=== PATIENT | male | born 1950 | race Caucasian/White ===

== ENCOUNTER → 2016-11-19 | Outpatient (CLI) | payer BC ==
[~2016-11-19] MED LIST: ALBUTEROL17 GM INH; AMLODIPINE BESYL5 MG PO; ASPIRIN81 MG PO; AVODART0.5 MG PO; BENZONATATE PO; CELEBREX PO; CLARITHROMYCIN500 MG PO; CLEOCIN HCL150 MG PO; FLANAX220 MG PO; FLEXERIL10 MG PO; HYZAAR 100-25 T1 TAB PO; KEFLEX500 MG PO; LIPITOR20 MG PO; LISINOPRIL PO; LORTAB 5/500 TA1 TA1 PO; MEDROL4 MG/DOSE- PO; METOPROLOL SUCC25 MG PO; MYAMBUTOL400 M1 PO; NEXIUM PO; NORVASC PO; OMEPRAZOLE40 M1 PO; PATIENT'S PHARMACY; PREDNISONE10 MG/DOSE PO; RIFAMPIN300 M1 PO; TRIBENZOR 40-51 EAC1 PO; ZESTORETIC 20-1 EAC1 PO; ZOCOR PO
--- NOTE | ~2016-11-19 | CT55 ---
[facility] A Service of [facility] & [facility] RADIOLOGY TEXT RESULTS PATIENT: LORENA WASHINGTON LOCATION: [facility] : 54 UNIT #: [id number] AGE: [address]: MONSE LIM MD (INT MED) SEX: M ORDER DR: [id number] [address] [address] [id number] O MR#: [id number] Acc #: [id number] NAME: LORENA WASHINGTON. : 1950 SEX: M STUDY DATE/TIME: 11/19/2016 13:50 UNIT: [facility] ROOM: STUDY DESCRIPTION: CT Chest W Con Attending Physician: Monse Lim M.D. Referring Physician: Monse Lim M.D. Ordering Physician: Monse Lim M.D. Primary Care Physician: Monse Lim M.D. MEDICAL IMAGING REPORT This report is preliminary unless electronic signature is present. EXAM CT chest with contrast 11/19/2016 1350 hours CLINICAL HISTORY 65-year-old man with history of pneumonia, cough, shortness of air with hypertension. History of abnormal chest x-ray 6-7 weeks ago for further evaluation. COMPARISON Chest x-ray 11/15/2016, 09/17/[address] abdomen 06/14/2010. TECHNIQUE Dynamic helical CT images were obtained from the lung apices through the adrenal glands with contrast. Sagittal and coronal reconstructions were performed. Total contrast was Isovue-370 70 mL IV. Total exam DLP 539 mGy-cm. This CT exam was performed with one or more of the following radiation dose reduction techniques: automatic exposure control, adjustment of mA and/or kV according to patient size, and iterative reconstruction. FINDINGS Images through the thoracic inlet demonstrate no thyroid lesion or supraclavicular adenopathy. Images through the chest demonstrate normal caliber aorta, pulmonary arteries, cardiac chambers and pericardium. There is no pathologic adenopathy. There is no pericardial or pleural fluid. The lungs demonstrate significant underlying emphysematous change. There is mass-like opacity with areas of the areas of rounded lucency in the right upper lobe. These rounded areas may represent emphysematous blebs within an area of infiltrate or mass. This measures up to 6.8 x 4.3 cm. There is an irregularly marginated noncalcified nodular density at the [facility] A Service of [facility] & [facility] RADIOLOGY TEXT RESULTS PATIENT: LORENA WASHINGTON LOCATION: [facility] : 52 UNIT #: [id number] AGE: [address]: MONSE LIM MD (INT MED) SEX: M ORDER DR: left lung apex measuring 1.7 x 1.3 cm. Both of these areas are nonspecific and could represent infection, post infectious change, however, malignancy is a concern particularly given the progression of the right upper lobe findings from August to October 2016. Abnormal density extends along the lateral pleural surface through the lateral aspect of the right upper lobe measuring up to 2.9 cm transversely in its inferior aspect. This does abut the minor fissure and may involve the fissure but does not cross the fissure. The right middle lobe and right lower lobe are clear. The left lower lobe is clear. Limited views through the upper abdomen demonstrate tiny sand-like gallstones in the gallbladder without gallbladder wall thickening. The liver and adrenal glands are normal. IMPRESSION 1. Abnormal chest CT confirming mass-like opacity in the periphery of the right upper lobe extending inferiorly and abutting the pleura of the minor fissure. This may involve the pleura of the minor fissure but does not cross the fissure. This finding is similar to chest x-ray 11/15/2016 but clearly increased from chest x-ray 09/17/2016 and new from 07/22/2012. Infection including atypical organisms is included in the differential. The progression of findings is concerning for malignancy. 2. There is an ovoid irregularly marginated density in the left apex measuring 1.3 x 1.7 cm. This is concerning for malignancy. This is not detectable on plain film. 3. There is no adenopathy or pleural fluid. The visualized portions of the liver and the adrenal glands are normal. 4. Consider further characterization with PET/CT to assess for malignancy. STAT * RESULT Dictated by... Miryam Borrego M.D. THIS IS AN ELECTRONICALLY VERIFIED REPORT Miryam Borrego M.D. at 11/20/2016 7:01 PM NATALIYA/jessy TD: 11/20/2016 14:00 JOB #: [id number] MEDICAL IMAGING REPORT Page 1 of 1
[2016-11-19 13:50] LABS: POC - CREATININE 1.05 mg/dL (0.64-1.27); POC - GFR >60.0 mL/min (>60)
== END | disposition home or self-care (01) ==
LOC: SCT 15:47
PROVIDERS: Internal Medicine
DX: R93.8 Abnormal findings on diagnostic imaging of other specified body structures (principal); J98.4 Other disorders of lung
CPT/HCPCS: 71260; 82565; Q9967

== ENCOUNTER 2017-03-23 11:02 | Inpatient (IN) | payer BC ==
[~2017-03-23] VITALS: Ht 175.3 cm; Wt 67.4 kg
--- NOTE | ~2017-03-23 | HP ---
Unit #: [id number] #: [id number] Patient: LORENA WASHINGTON [id number] [address] [place], [place] [address] [id number] I MR#: [id number] NAME: LORENA WASHINGTON. ROOM: 547 Age: 66 Sex: M Admission Date: 03/23/2017 : 1950 Attending Physician: Jayesh Calles M.D. Primary Care Physician: Alberto Lim M.D. HISTORY AND PHYSICAL CHIEF COMPLAINT Chest pain. 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 The patient had multiple biopsies for the right upper lobe density and was diagnosed with the Mycobacterium avium complex. The patient stated the patient continues to smoke cigarettes and was complaining of shortness of breath and nonproductive cough. The patient had a chest x-ray that shows a right upper density and being admitted for the above reasons. The patient also complains of feeling cold sweats and denies any chest pain, denies any nausea and vomiting. PAST MEDICAL HISTORY History of a COPD, hypertension and lung infection with the Mycobacterium avium complex. PAST SURGICAL HISTORY Right shoulder surgery. HOME MEDICATION Patient is on omeprazole, Lipitor, metoprolol, aspirin, lisinopril and hydrochlorothiazide, naproxen, clarithromycin and Myambutol and Rifampin and amlodipine. SOCIAL HISTORY Patient continues to smoke a pack of cigarettes daily and positive for occasional alcohol and denies any illicit drug abuse. FAMILY HISTORY Reviewed and none. ALLERGIES No known drug allergies. REVIEW OF SYMPTOMS Positive for shortness of breath, positive for chest pain, positive for a nonproductive cough, positive for the night sweats. All other systems have been reviewed and none. Unit #: [id number] #: [id number] Patient: LORENA WASHINGTON PHYSICAL EXAMINATION GENERAL APPEARANCE: On examination patient is lying on a bed, not in acute distress. VITAL SIGNS: Temperature 97.5, pulse 97, respiratory rate 16, blood pressure 147/87, sating 98% at room air. HEENT: Head atraumatic and normocephalic. Pupils equal, round and reacting to light and accommodation. Extraocular movements are intact. NECK: Supple. LUNGS: Decreased air entry at the bases. HEART: Regular rate and rhythm. ABDOMEN: Soft, positive bowel sounds. EXTREMITIES: No cyanosis. No clubbing. NEUROLOGIC: Alert, awake, oriented. No gross focal motor deficit. DIAGNOSTIC STUDIES LABORATORY DATA: WBC 15.3, hemoglobin 15.9, hematocrit 45.1, platelets 208, INR is 1.3, sodium 136, potassium 3.7, chloride 100, bicarb 27, glucose 116, BUN 32, creatinine 1.2, AST 14, ALT 13, alkaline phosphatase 73, total bilirubin 2.7, albumin 3.6, BNP 232, and myoglobin is 302. ASSESSMENT 1. Chronic obstructive pulmonary disease. 2. Mycobacterium avium complex infection. PLAN Plan to admit the patient to the observation with the telemetry. Continue with the triple antibiotics with the Myambutol and the clarithromycin and Rifampin and will add the Solu-Medrol 40 mg q.8 h. and will have the pulmonary doctor evaluate the patient here and obtain the old records from the [facility] and continue with a nicotine patch for the smoking cessation and further recommendations will follow. Dictated by Darryl Aguirre TD: 03/23/2017 20:54 JOB #: [id number] HISTORY AND PHYSICAL Page 1 of 1 X JAYESH CALLES MD X HISTORY AND PHYSICAL
--- NOTE | ~2017-03-23 | CR72 ---
[facility] A Service of [facility] RADIOLOGY TEXT RESULTS PATIENT: LORENA WASHINGTON LOCATION: [facility] [address] : 54 UNIT #: [id number] AGE: [address]: Kelsey Reid MD SEX: M ORDER DR: [id number] [facility] [address] [facility] [place], [place] [address] [id number] I MR#: [id number] Acc #: [id number] NAME: LORENA WASHINGTON. : 1950 SEX: M STUDY DATE/TIME: 03/25/2017 11:46 [facility] ROOM: [address] [place] [address] DESCRIPTION: CR Chest Single View Portable Attending Physician: Kelsey Reid M.D. Ordering Physician: Physician Non-Staff Primary Care Physician: Alberto Lim M.D. MEDICAL IMAGING REPORT This report is preliminary unless electronic signature is present EXAM Portable chest HISTORY Shortness of breath and chest pain, onset today. Recent pneumonia. TECHNIQUE A single AP view of the chest was obtained. COMPARISON 03/23/2017 FINDINGS Consolidation is again seen at the right apex. It shows partial clearing since the previous exam. No new infiltrates are seen elsewhere. No pleural fluid is noted. The heart and mediastinum are stable and vascular markings are normal. IMPRESSION Slight decrease in extent of right apical infiltrate since the previous exam. No new lesions are seen elsewhere in the chest. Dictated by... Jake Lara M.D. THIS IS AN ELECTRONICALLY VERIFIED REPORT Jake Lara M.D. at 04/02/2017 1:55 PM ERUM/vargas TD: 03/25/2017 18:06 JOB #: [id number] MEDICAL IMAGING REPORT [facility] A Service [facility] RADIOLOGY TEXT RESULTS PATIENT: LORENA WASHINGTON LOCATION: [facility] 315- : 52 UNIT #: [id number] AGE: [address]: Kelsey Reid MD SEX: M ORDER DR: Page 1 of 1 COPY
--- NOTE | ~2017-03-23 | DS ---
Unit #: [id number] #: [id number] Patient: LORENA WASHINGTON [id number] [address] [place], [place] [address] [id number] I MR#: [id number] NAME: LORENA WASHINGTON ROOM: 315 Age: 66 Sex: M Admission Date: 03/23/2017 : 1950 Discharge Date: Attending Physician: Kelsey Reid M.D. Primary Care Physician: Alberto Lim M.D. DISCHARGE SUMMARY DISCHARGE DIAGNOSES 1. Mycobacterium avium infection. 2. Chronic obstructive pulmonary disease with exacerbation. 3. Chest pain, pulmonary related, atypical. 4. Hypertension. 5. Left apex amass, rule out malignancy. CONSULTATION Dr. Barajas. PROCEDURE None. DIAGNOSTIC STUDIES LABORATORY: ABG: A pH 7.4, carbon dioxide 43, oxygen 73. Sodium 141, potassium 3.3, creatinine 1. WBC 13.2, hemoglobin 13.4, platelets 207,000. IMAGING: CT of the chest without contrast shows slight improvement in dense consolidation right upper lobe and persistent spiculated mass left lung apex measuring 1.9 x 1.6 cm, slightly increased from previous study concerning for malignancy. HOSPITALIZATION COURSE A 66 year old admitted because of shortness of breath. Shortness of breath with chest pain and cough, secondary to MAC infection. The patient has been evaluated by Yomaira Cohen Dr. (1) . Patient wants to go to [facility] for further evaluation and treatment. I talked to the admitting doctor at [facility] and he will be admitted under Dr. Rene, proofreader, for further evaluation and treatment of his MAC infection. Left apex mass, rule out malignancy. I am going to leave (2) to the [facility] Noel proofreader for further evaluation and treatment of that left apex mass. Hypertension: Well controlled. Chest pain: Likely from noncardiac issues from his lung-related issues. Cardiac enzymes have been ordered which are pending. His EKG shows sinus tachycardia. Discussed with Dr. Abebe. He is okay for the patient to be transferred to [facility]. He agreed to accept the patient. The patient will be Unit #: [id number] #: [id number] Patient: LORENA WASHINGTON transferred to [facility] under Dr. Rene's care. ALLERGIES None. DISCHARGE MEDICATIONS 1. DuoNeb 3 mL inhalation q.4. 2. Solu-Medrol 40 IV q.8. 3. Tylenol 650 q.6 p.r.n. pain. 4. Lovenox 40 mg subcutaneous daily. 5. Ethambutol 400 mg p.o. b.i.d. 6. Rifampin 300 mg p.o. b.i.d. 7. Nicotine 21 mg transdermal daily. 8. Norvasc 5 daily. 9. Toprol XL 12.5 p.o. daily. 10. Hydrochlorothiazide 12.5 p.o. daily. 11. Lipitor 20 daily. 12. Lisinopril 20 daily. 13. Aspirin 81 daily. 14. Naproxen 500 daily. 15. Protonix 40 daily. 16. Biaxin 500 mg p.o. b.i.d. Dictated by... Darryl Hwang/james TD: 03/25/2017 12:00 JOB #: [id number] DISCHARGE SUMMARY Page 1 of 1 X Kelsey Reid MD X DISCHARGE SUMMARY
--- NOTE | ~2017-03-23 | EKG ---
PATIENT: LORENA WASHINGTON UNIT #: [id number] Ventricular Rate: 117 BPM Atrial Rate: 117 BPM P-R Interval: 140 ms QRS Duration: 86 ms Q-T Interval: 346 ms QTC Calculation(Bezet): 482 ms P [place]: 76 degrees Calculated R [place]: -72 degrees Calculated T [place]: 64 degrees Diagnosis Line: Sinus tachycardia Diagnosis Line: Biatrial enlargement Diagnosis Line: Pulmonary disease pattern Diagnosis Line: RSR' or QR pattern in V1 suggests right Diagnosis Line: ventricular conduction delay Diagnosis Line: Left anterior fascicular block Diagnosis Line: Possible Inferior infarct (cited on or before Diagnosis Line: 25-MAR-2017) Diagnosis Line: Abnormal ECG Diagnosis Line: When compared with ECG of 17-SEP-2016 22:25, Diagnosis Line: No significant change was found Diagnosis Line: Confirmed by SALOME OKEEFE MD ([id number]) on 03/25/2017 Diagnosis Line: 7:59:42 PM INTERPRETING MD: MALDONADO RODRIGUEZ
--- NOTE | ~2017-03-23 | EKG ---
PATIENT: LORENA WASHINGTON UNIT #: [id number] Ventricular Rate: 101 BPM Atrial Rate: 101 BPM P-R Interval: 142 ms QRS Duration: 96 ms Q-T Interval: 376 ms QTC Calculation(Bezet): 487 ms P [place]: 77 degrees Calculated R [place]: -75 degrees Calculated T [place]: 68 degrees Diagnosis Line: Sinus tachycardia Diagnosis Line: Biatrial enlargement Diagnosis Line: Left anterior fascicular block Diagnosis Line: Abnormal ECG Diagnosis Line: When compared with ECG of 17-SEP-2016 22:25, Diagnosis Line: No significant change was found Diagnosis Line: Confirmed by JUNG SUTTON MD ([id number]) on Diagnosis Line: 03/27/2017 11:10:08 PM INTERPRETING : CHELY
--- NOTE | ~2017-03-23 | CT57 ---
[facility] A Service of [facility] & [facility] RADIOLOGY TEXT RESULTS PATIENT: LORENA WASHINGTON LOCATION: [facility] 315-01 : [birth year] UNIT #: [id number] AGE: [address]: Kelsey Reid MD SEX: M ORDER DR: [id number] [facility] [address] [facility]. [place], [place] [address] [id number] I MR#: [id number] Acc #: [id number] NAME: LORENA WASHINGTON. : 1950 SEX: M STUDY DATE/TIME: 03/24/2017 20:02 [facility]: [facility] STUDY DESCRIPTION: CT Chest Wo Cont Attending Physician: Kelsey Reid M.D. Ordering Physician: Jin Mcrae M.D. Primary Care Physician: Alberto Lim M.D. MEDICAL IMAGING REPORT This report is preliminary unless electronic signature is present EXAM CT chest without contrast 03/24/2017 HISTORY 66-year-old male with chest pain since 03/21/2017. Fever, cough and congestion. History of MAC infection right upper lobe. COMPARISON CT chest 11/19/2016 TECHNIQUE Helical scan performed through the chest without IV contrast. Coronal and sagittal reformatted images. This CT exam was performed with one or more of the following radiation dose reduction techniques: Automatic exposure control, adjustment of mA and/or kV according to patient size, and iterative reconstruction. FINDINGS Thoracic aorta normal in course and caliber with scattered atherosclerotic calcification. Heart size normal. No pericardial effusion. No pleural effusions. No pneumothorax. There is again noted a spiculated mass in the left lung apex measuring 1.9 x 1.6 cm in size. This has slightly increased from the prior study, where it measured 1.3 x 1.7 cm. This is again concerning for malignancy. There is slight interval improvement in aeration of the dense consolidation in the right upper lobe. Atypical infectious process is again considered in the differential diagnosis. The findings are superimposed on severe emphysema. Scanning through the upper abdomen demonstrates cholelithiasis. No acute bony abnormality. IMPRESSION [facility] A Service of [facility] & [facility] RADIOLOGY TEXT RESULTS PATIENT: LORENA WASHINGTON LOCATION: [facility] 315-01 : [birth year] UNIT #: [id number] AGE: [address]: Kelsey Reid MD SEX: M ORDER DR: 1. Slight interval improvement in dense consolidation in the right upper lobe. Atypical infection is again considered in the differential. Underlying malignancy is not completely excluded and continued follow up to resolution recommended. 2. Persistent spiculated mass in the left lung apex. This measures 1.9 x 1.6 cm on today's exam, slightly increased from 1.3 x 1.7 cm on the previous study. This is again concerning for malignancy and further evaluation with PET CT may be considered. 3. Severe emphysema. 4. Cholelithiasis. Dictated by... Gurjit Bello M.D. THIS IS AN ELECTRONICALLY VERIFIED REPORT Gurjit Bello M.D. at 03/25/2017 10:55 AM TOSHIA/aung TD: 03/25/2017 10:48 JOB #: [id number] MEDICAL IMAGING REPORT Page 1 of 1 COPY
--- NOTE | ~2017-03-23 | CR72 ---
[facility] A Service of [facility] RADIOLOGY TEXT RESULTS PATIENT: LORENA WASHINGTON LOCATION: [facility] 315-01 : 54 UNIT #: [id number] AGE: [address]: Jin Mcrae MD SEX: M ORDER DR: [id number] [address] [address] [id number] E MR#: [id number] Acc #: [id number] NAME: LORENA WASHINGTON : 1950 SEX: M STUDY DATE/TIME: 03/23/2017 12:10 UNIT: SED ROOM: STUDY DESCRIPTION: CR Chest Single View Portable Attending Physician: Tres Bal M.D. Ordering Physician: Tres Bal M.D. Primary Care Physician: Alberto Lim M.D. MEDICAL IMAGING REPORT This report is preliminary unless electronic signature is present. EXAM Portable chest INDICATION Dull ache in chest with cough, congestion, and night sweats for 2 days. COMPARISON 09/17/2016 FINDINGS A portable view of the chest was obtained. The heart size and vascularity are normal. The left lung is clear. There is increased density throughout a large area of the right apex measuring 8.3 cm in diameter. There was some density in this region on the previous study and allowing for changes in patient position, it is probably stable. There is a chest CT from 11/19/2016 which confirmed a large right apical area of consolidation. IMPRESSION Large area of abnormal density in the right apex measuring at least 8 cm in diameter. Today's study is a portable chest and it was difficult to compare to the PA and lateral view of the chest and the chest CT done in October of 2016. Certainly, there was a large amount of abnormal density in this region on chest CT and it may not have changed significantly. It has certainly progressed as compared with the 09/17/2016 portable chest. Correlation with medical records which may show what is recommended. A repeat chest CT could be performed to allow comparison between the CT scan today and the findings in October. It certainly has an appearance suggesting either tumor or infection. TB cannot be excluded with location of this abnormality and the history of night sweats. [facility]. [facility] A Service of [facility] RADIOLOGY TEXT RESULTS PATIENT: LORENA WASHINGTON LOCATION: [facility] 315-01 : 54 UNIT #: [id number] AGE: [address]: Jin Mcrae MD SEX: M ORDER DR: Dictated by... Mukesh Prince M.D. THIS IS AN ELECTRONICALLY VERIFIED REPORT Mukesh Prince M.D. at 03/25/2017 6:16 AM ROSANNE/jessy TD: 03/24/2017 14:55 JOB #: [id number] MEDICAL IMAGING REPORT Page 1 of 1
--- NOTE | ~2017-03-23 | CO ---
Unit #: [id number] #: [id number] Patient: ALEXI OLEARY [id number] [address] [place], [place] [address] [id number] MR#: [id number] NAME: ALEXI OLEARY ROOM: 315 Age: 66 Sex: M Admission Date: 03/23/2017 : 1950 Attending Physician: Kelsey Reid M.D. Primary Care Physician: Alberto Lim M.D. Consultation Date: 03/25/2017 CONSULTATION REPORT PULMONARY CONSULTATION HISTORY OF PRESENT ILLNESS Alexi Oleary is a 66-year-old, male, admitted to the emergency department with complaints of chest pain and dyspnea. Mr. Oleary is an active smoker with COPD and a cavitary density in the apex of his right lung that has been under evaluation since August of this year. He had a chest CT done at this hospital on November 19 that made note of a 5- to 6-cm mass in the apex of the right upper lobe abutting the pleural surface. According to some medical records from [facility] and the family, he was evaluated by Dr. Wojciech Martinez at [facility] with navigational bronchoscopy and then percutaneous needle biopsy of right upper lobe. Initial biopsies were positive for granulomatous disease, and there was a concern that this represented sarcoidosis. 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 The patient did well until about 24 hours prior to admission when he developed increased chest congestion, cough, sputum production, and chest pain. He was taken to the emergency department at [facility] and then transferred here because of his chest pain history. Last evening, he spiked fever to 103. His admission chest x-ray suggested a cavitary infiltrate in right apex. PAST MEDICAL HISTORY Remarkable for hypertension, gastroesophageal reflux, chronic sinusitis, and dyslipidemia. He also has a history of rheumatoid arthritis and chronic low back pain with sciatica. PAST SURGICAL HISTORY Include right shoulder surgery in 2006. OUTPATIENT MEDICATIONS Include omeprazole, Lipitor, metoprolol, aspirin, Zestoretic, and the above-mentioned antibiotics. ALLERGIES No drug allergies. FAMILY HISTORY Reviewed, noncontributory. Unit #: [id number] #: [id number] Patient: ALEXI OLEARY SOCIAL HISTORY The patient smokes a pack of cigarettes a day. No history of alcohol or drug abuse. Socially drinks beer. REVIEW OF SYSTEMS CONSTITUTIONAL: His chest congestion is a bit better last 24 hours. ENT: Complained of chronic nasal and sinus congestion. No epistaxis. NECK: No pain in cervical spine. No thyroid enlargement. PULMONARY: His dyspnea and cough are slightly better this morning. CARDIOVASCULAR: Denied midsternal chest pain, ankle edema, or orthopnea. GI: Denied nausea, vomiting, or diarrhea. : Denied dysuria or hematuria. He has problems with urinary hesitancy and dribbling. NEUROLOGIC: No loss of consciousness, seizures, or syncope. ENDOCRINE: Denied cold intolerance, polyuria, or polydipsia. MUSCULOSKELETAL: Complained of feeling generally weak, but no focal or unilateral weakness. No joint swelling or erythema. PHYSICAL EXAMINATION GENERAL: He appeared well-developed, well-nourished male, in no acute distress. VITAL SIGNS: His vital signs around the time of admission, temperature was 98.2, pulse 83, respirations 16, and blood pressure was 149/79. HEENT: Head, normocephalic without evidence of trauma. Eyes; pupils equal, round, reactive to light. Accommodation not tested. Sclerae anicteric. Conjunctivae normal. Ear, nose, and throat; nostrils open and patent. Tympanic membranes appeared normal. Oral cavity was remarkable for a low-set soft palate. Mallampati class 3. No oral lesions. NECK: Supple without adenopathy or jugular venous distention. LUNGS: Hyperresonant percussion with diminished breath sounds. Scattered rhonchi bilaterally. No rales or wheezes. CARDIAC: PMI, left fifth intercostal space, midclavicular line. No murmurs or gallops. ABDOMEN: Soft, nontender. No hepatosplenomegaly or masses. Bowel sounds were normal. GENITALIA: Normal male. RECTAL: Deferred. EXTREMITIES: Without clubbing, cyanosis, or edema. DIAGNOSTIC STUDIES LABORATORY RESULTS: Laboratory work on admission, his chemistry profile was unremarkable, other than a total bilirubin of 2.7, BUN of 34, and creatinine of 1.2. His white blood cell count on admission elevated at 15,300, his hemoglobin was 14 g, and hematocrit 41%. IMAGING STUDIES: Chest x-ray as above. IMPRESSION 1. Chest pain - being evaluated for myocardial ischemia. 2. Chronic obstructive pulmonary disease with exacerbation. 3. 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 4. Fever, according to family, at bedside up to 103, last evening, cause unclear. Note is made his white blood cell count is elevated. Potential pulmonary causes include new respiratory infection with bronchitis or pneumonia or worsening of MAC. 5. Abnormal liver function. Elevated total bilirubin. Unit #: [id number] #: [id number] Patient: ALEXI OLEARY RECOMMENDATIONS We will repeat chest CT, compared to the one done in October of this year. Continue MAC antibiotics for the time being. He has also been started on Rocephin to cover community-acquired pneumonia along with nebulized bronchodilators and a brief burst of IV steroids. The family is questioning whether the patient be transferred to [facility] under the care of Dr. Martinez, told them that this may be somewhat complicated particularly on the weekend day and for now until his chest pain has been evaluated along with fever workup, he should remain here. Dictated by... Josue Shaw M.D. JASON/becky TD: 03/26/2017 04:07 JOB #: [id number] CONSULTATION REPORT Page 1 of 1 X Josue Shaw MD CONSULTATION REPORT
[~2017-03-23 11:02] MED LIST changes: -AMLODIPINE BESYL5 MG PO; -CLARITHROMYCIN500 MG PO; -FLANAX220 MG PO; -MYAMBUTOL400 M1 PO; -PATIENT'S PHARMACY; -RIFAMPIN300 M1 PO; -ZESTORETIC 20-1 EAC1 PO
[2017-03-23] MEDS ORDERED: FLANAX220 MG PO (11:10)
[2017-03-23] MEDS ORDERED: ZESTORETIC 20-1 EAC1 PO (11:10)
[2017-03-23 11:50] LABS: BASOPHIL# 0.1 X10e3 (0-0.3); BASOPHIL% 0.4 % (0-2.5); EOSINOPHIL# 0.4 X10e3 (0-0.7); EOSINOPHIL% 2.4 % (0.0-7.0); HEMATOCRIT 45.1 % (38.0-50.0); HEMOGLOBIN 15.9 gm/dL (13.0-16.0); LYMPHOCYTE# 0.7 X10e3 (1.0-3.5); LYMPHOCYTE% 4.4 % (17.0-45.0); MEAN CELL VOLUME 94.1 FL (83-96); MEAN CORPUSCULAR HEMOGLOBIN 33.1 PG (28-34); MEAN CORPUSCULAR HGB CONC 35.2 g/dL (30-36); MEAN PLATELET VOLUME 7.7 FL (6.5-11.5); MONOCYTE# 0.8 X10e3 (0-1.0); MONOCYTE% 5.5 % (3.0-12.0); NEUTROPHIL# 13.4 X10e3 (1.5-7.1); NEUTROPHIL% 87.3 % (40-75); PLATELET COUNT 208 X10e3 (140-420); RED BLOOD COUNT 4.79 X10e (3.90-5.60); RED CELL DISTRIBUTION WIDTH 14.7 % (11.0-15.5); WHITE BLOOD COUNT 15.3 X10e3 (4.0-10.5)
[2017-03-23 11:51] LABS: DIFF IND NO
[2017-03-23 12:06] LABS: INR 1.3; PROTHROMBIN TIME (PATIENT) 14.3 SECONDS (9.5-12.4)
[2017-03-23 12:13] LABS: PARTIAL THROMBOPLASTIN TIME 32.5 SECONDS (25.6-38.1)
[2017-03-23 12:17] LABS: ALBUMIN SERUM 3.6 g/dL (3.5-5.0); BILIRUBIN, DIRECT 1.2 mg/dL (0.0-0.2); BILIRUBIN,INDIRECT 1.5 mg/dL (0.0-0.9); BILIRUBIN,TOTAL 2.7 mg/dL (0.2-2.0); BUN/CREATININE RATIO 26.66; CALCIUM SERUM 9.2 mg/dL (8.4-10.2); CREATININE SERUM 1.2 mg/dL (0.6-1.4); GLOM FILT RATE Estimated 63.5 mL/min (>60); POTASSIUM 3.7 mmol/L (3.5-5.1); PROTEIN TOTAL SERUM 7.7 g/dL (6.0-8.3)
[2017-03-23 12:40] LABS: POC - CKMB 6.7 ng/mL (0.0-7.9); POC - TROPONIN <0.05 ng/mL (<=0.05)
[2017-03-23] MEDS ORDERED: PATIENT'S PHARMACY (18:04)
[2017-03-23] MEDS ORDERED: MYAMBUTOL400 M1 PO (18:36)
[2017-03-23] MEDS ORDERED: CLARITHROMYCIN500 MG PO (18:36)
[2017-03-23] MEDS ORDERED: RIFAMPIN300 M1 PO (18:37)
[2017-03-23] MEDS ORDERED: AMLODIPINE BESYL5 MG PO (18:37)
[2017-03-24 05:58] LABS: BASOPHIL% 0.1 % (0-2.5); EOSINOPHIL# 0.3 X10e3 (0-0.7); EOSINOPHIL% 2.2 % (0.0-7.0); HEMATOCRIT 40.4 % (38.0-50.0); LYMPHOCYTE# 0.7 X10e3 (1.0-3.5); LYMPHOCYTE% 5.2 % (17.0-45.0); MEAN CELL VOLUME 94.6 FL (83-96); MEAN CORPUSCULAR HEMOGLOBIN 32.9 PG (28-34); MEAN CORPUSCULAR HGB CONC 34.8 g/dL (30-36); MONOCYTE# 0.7 X10e3 (0-1.0); MONOCYTE% 5.7 % (3.0-12.0); NEUTROPHIL# 11.3 X10e3 (1.5-7.1); NEUTROPHIL% 86.8 % (40-75); PLATELET COUNT 192 X10e3 (140-420); RED BLOOD COUNT 4.27 X10e (3.90-5.60); RED CELL DISTRIBUTION WIDTH 14.4 % (11.0-15.5)
[2017-03-24 06:00] LABS: DIFF IND NO
[2017-03-24 06:24] LABS: BUN/CREATININE RATIO 28.33; CALCIUM SERUM 9.6 mg/dL (8.4-10.2); CREATININE SERUM 1.2 mg/dL (0.6-1.4); GLOM FILT RATE Estimated 63.5 mL/min (>60); POTASSIUM 4.1 mmol/L (3.5-5.1)
[2017-03-25 08:37] LABS: HEMATOCRIT 38.3 % (38.0-50.0); HEMOGLOBIN 13.4 gm/dL (13.0-16.0); MEAN CELL VOLUME 93.4 FL (83-96); MEAN CORPUSCULAR HEMOGLOBIN 32.7 PG (28-34); RED BLOOD COUNT 4.1 X10e (3.90-5.60); RED CELL DISTRIBUTION WIDTH 14.5 % (11.0-15.5); WHITE BLOOD COUNT 13.2 X10e3 (4.0-10.5)
[2017-03-25 09:20] LABS: CALCIUM SERUM 9.7 mg/dL (8.4-10.2); GLOM FILT RATE Estimated 79.2 mL/min (>60); POTASSIUM 3.3 mmol/L (3.5-5.1)
[2017-03-25 10:32] LABS: ARTERIAL BLOOD GAS CARBOXY HB 0.4 %sat (0.0-9.0); ARTERIAL BLOOD GAS HCO3 26.9 mmol/L; ARTERIAL BLOOD GAS MET HB 0.8 %sat (0.0-2.0); ARTERIAL BLOOD GAS PCO2 43.5 mmHg (35.0-45.0)
[2017-03-25 10:33] LABS: ARTERIAL BLOOD GAS ALLEN TEST NORMAL; ARTERIAL BLOOD GAS ART SITE RIGHT RADIAL; ARTERIAL BLOOD GAS DELIVERY NASAL CANNULA; ARTERIAL BLOOD GAS PO2 73.2 mmHg (80.0-100); ARTERIAL DRAW? YES
[2017-03-27 01:16] LABS: NIL 0.03 IU/mL (()); QUANTIFERON INDETERMINATE (Negative)
== END 2017-03-25 13:42 | disposition short-term general hospital (02) | DRG 178 ==
LOC: SED 11:02 → CEDOF 13:49 → C5B 13:49 → CEDOF 18:55 → C5B 03-24 06:49 → C3A PCU 03-24 17:59
PROVIDERS: Emergency Medicine; Internal Medicine; Internal Medicine Endocrinology, Diabetes & Metabolism
DX: A31.0 Pulmonary mycobacterial infection (principal); J44.1 Chronic obstructive pulmonary disease with (acute) exacerbation; T17.990A Other foreign object in respiratory tract, part unspecified in causing asphyxiation, initial encounter; I10 Essential (primary) hypertension; E78.5 Hyperlipidemia, unspecified; R07.89 Other chest pain; F17.210 Nicotine dependence, cigarettes, uncomplicated; M06.9 Rheumatoid arthritis, unspecified; M54.5 Low back pain; Z79.82 Long term (current) use of aspirin; R91.8 Other nonspecific abnormal finding of lung field
CPT/HCPCS: 36415; 36600; 71010; 71250; 80048; 80076; 82553; 82803; 83874; 83880; 84484; 85025; 85027; 85610; 85730; 86480; 93005; 94640; 94760; 96365; 99285; J0456; J0696; J1650; J2920; J2930